=== PATIENT | male | born 1990 ===

== ENCOUNTER 2017-05-29 01:12 | Emergency (ER) | payer OTHER ==
[2017-05-29] MEDS ORDERED: Lidocaine 5% Patch TD STA (01:33)
[2017-05-29] MEDS ORDERED: Lidocaine 5% Patch TD ONE (01:39)
--- NOTE | 2017-05-29 01:56 | C.PDOC ---
History Of Present Illness Patient is a 27 y/o male who presents to the ED with a complaint of lower back pain worse on the left side, started 30 minutes [employer]. Patient reports to have been lifting a box at work that was over 100 pounds prior to onset of back pain. Pain is constant, non-radiating and worsening with movement. Denies numbness, weakness, or incontinence. Time Seen by Provider: 05/29/17 01:29 Chief Complaint (Nursing): Back Pain History Per: Patient History/Exam Limitations: no limitations Onset/Duration Of Symptoms: Mins (30 mins [employer]), Persistent Current Symptoms Are (Timing): Still Present Quality Of Discomfort: "Pain" Associated Symptoms: denies: Incontinence, New Weakness, New Numbness Exacerbating Factor(s): Movement Recent travel outside of the [place]: No Past Medical History Reviewed: Historical Data, Nursing Documentation, Vital Signs Vital Signs: Last Vital Signs Temp 98 F 05/29/17 02:44 Pulse 70 05/29/17 02:44 Resp 70 H 05/29/17 02:44 BP 125/75 05/29/17 02:44 Pulse Ox 18 L 05/29/17 02:44 - Medical History PMH: No Chronic Diseases Surgical History: No Surg Hx Family History: States: No Known Family Hx - Social History Hx Tobacco Use: No Hx Alcohol Use: No Hx Substance Use: No - Immunization History Hx Tetanus Toxoid Vaccination: No Hx Influenza Vaccination: No Hx Pneumococcal Vaccination: No Review Of Systems Except As Marked, All Systems Reviewed And Found Negative. Musculoskeletal: Positive for: Back Pain (lower back, worse on left side) Physical Exam - Physical Exam Appears: Non-toxic, Other (uncomfortable, standing still) Skin: Warm, Dry Head: Atraumatic, Normacephalic Eye(s): bilateral: Normal Inspection Neck: Normal ROM Chest: Symmetrical Cardiovascular: Rhythm Regular, No Murmur Respiratory: Normal Breath Sounds, No Rales, No Rhonchi, No Wheezing Back: Normal Inspection (no swelling, bulging, ecchymosis, rash), No Vertebral Tenderness, Decreased ROM (decreased ROM secondary to pain), Muscle Spasm ( lower left side), Paraspinal Tenderness (tenderness across paralumbar region, worse on left side), No Straight Leg Raising Extremity: Bilateral: Atraumatic, Normal Color And Temperature, Normal ROM Neurological/Psych: Oriented x3, Normal Speech, Other (no focal deficits) Gait: Steady ED Course And Treatment O2 Sat by Pulse Oximetry: 98 Medical Decision Making Medical Decision Making: Impression: low back strain Plan: * Tylenol * Toradol * Valium * Lidocaine 0231 On re-eval, patient is now sitting on stretcher, appears more comfortable and states the pain is improving. He is ambulatory without discomfort. He feels comfortable going home and is stable for discharge. Disposition Counseled Patient/Family Regarding: Diagnosis, Need For Followup, Rx Given - Disposition Referrals: [facility] [Outside] [facility] [Outside] Disposition: HOME/ ROUTINE Disposition Time: 02:32 Condition: IMPROVED Additional Instructions: Apply heat to area for 15-20 minutes at a time 2-3 times per day Take Motrin for pain every 6-8 hours as needed, with food to not upset stomach Take Flexeril for muscle pain and spasm every 6-8 hours as needed, caution can cause drowsiness Follow up with your primary medical doctor or clinic in 2-5 days for further evaluation Return to the emergency department at any time if symptoms persist or worsen. Prescriptions: Cyclobenzaprine [Cyclobenzaprine HCl] 10 mg PO TID #21 tab Ibuprofen [Motrin] 600 mg PO Q8 #30 tab Instructions: Acute Low Back Pain (ED) Forms: [facility] ([place]), Work Excuse - POA Present On Arrival: None - Clinical Impression Clinical Impression: Low back strain - Scribe Statement The provider has reviewed the documentation as recorded by the Scribe Sona Moscoso All medical record entries made by the Scribe were at my direction and personally dictated by me. I have reviewed the chart and agree that the record accurately reflects my personal performance of the history, physical exam, medical decision making, and the department course for this patient. I have also personally directed, reviewed, and agree with the discharge instructions and disposition.
[2017-05-29 02:46] VITALS: BP 125/75; PULSE 70; RESP 70; TEMP 98
[2017-05-29 03:25] VITALS: O2SAT 98
== END 2017-05-29 02:46 | disposition home or self-care (01) ==
LOC: C.ER 01:12
DX: S39.012A Strain of muscle, fascia and tendon of lower back, initial encounter (principal); X50.9XXA Other and unspecified overexertion or strenuous movements or postures, initial encounter; Y99.0 Civilian activity done for income or pay
CPT/HCPCS: 96372; 99284; J1885